=== PATIENT | male | born 1950 | race Caucasian/White ===

== ENCOUNTER 2023-06-30 09:57 | Outpatient (OUT) | payer MEDICARE, SELFPAY ==
--- NOTE | 2023-06-30 14:45 | CA_ITS ---
Patient Name: CUATE GOLDMAN MR#: [id number] : 1950 Exam Date: 06/30/2023 Ordering Doctor: DR VIGNESH ZHOU M.D. ECHOCARDIOGRAM REPORT PROCEDURE: CA ECHO DOPPLER COMPLETE INDICATIONS: Dizziness, loop recorder, hypertension, CAD COMPARISON: None. DESCRIPTION: COMPLETE ECHOCARDIOGRAM Real-time transthoracic echocardiography with 2D, M-mode, spectral and color flow Doppler performed. QUALITY: Technical quality was good. 72 , 204#, BSA 2.15 m2 LEFT VENTRICLE: Normal chamber size. Proximal septal hypertrophy (sigmoid septum). LV EF: Global left ventricular systolic function is normal; visually estimated ejection fraction is 55 to 60%. No obvious wall motion abnormalities. DIASTOLIC: Normal diastolic function. ATRIAL SEPTUM: Visually appears intact. LEFT ATRIUM: Moderate dilatation. RIGHT ATRIUM: Mild dilatation. RIGHT VENTRICLE: Normal chamber size. Normal right ventricular systolic function. TRICUSPID VALVE: Normal mobility and thickness. Mild regurgitation. No evidence of pulmonary hypertension. RVSP 30 mmHg MITRAL VALVE: Mildly thickened with normal mobility. No evidence of mitral valve stenosis. Mild mitral annular calcification. Mild mitral regurgitation. AORTIC VALVE: Normal trileaflet appearance. Moderately calcified aortic valve. No evidence of aortic valve stenosis. No aortic regurgitation. AORTIC ROOT: Mildly dilated. Aortic arch not well visualized. PULMONIC VALVE: Normal thickness and mobility. No stenosis. Trivial regurgitation. PERICARDIUM: No evidence of pericardial effusion. IVC: Collapses with inspirations. IVS is dilated (2.2 cm) CONCLUSION: 1. Global left ventricular systolic function is normal; visually estimated ejection fraction is 55 to 60% 2. The right ventricle is normal in size and systolic function 3. Biatrial enlargement 4. Normal diastolic function 5. Mild tricuspid regurgitation 6. Mild mitral regurgitation 7. The aortic root is mildly dilated Adult Echocardiography Procedure Report Left Ventricle LVEDD (3.7 - 5.6 cm): 4.92 cm LVESD (2.2 - 4.0 cm): 3.18 cm LVIVS thickness (0.6 - 1.2 cm): 1.63 cm LVPW thickness (0.5 - 1.0 cm): 1.09 cm e': 0.10 m/s E - e': 6.52 LVOT Max Gradient: 3.15 mm[Hg] LVOT Area (cm2): 0.89 m/s Peak Velocity (LVOT): 0.89 m/s Mean Velocity (LVOT): 0.54 m/s LVOT Diameter 2.61 cm Left Atrium LA Volume Index (2D A2C): 45.03 ml/m2 Left Atrium Systolic Dimension: 4.96 cm Mitral Valve MV E to A Ratio: 0.87 Mitral Valve A-Wave Peak Velocity: 0.77 m/s Mitral Valve E-Wave Peak Velocity: 0.67 m/s Right Ventricle Aorta AO Root Diam: 4.23 cm Ascending Ao Diam: 3.89 cm Aortic Valve AoV Area (Peak Rogerio): 3.94 cm2, 3.25 cm2 AoV Area (VTI): 3.96 cm2, 3.41 cm2 Peak Velocity(Antegrade Flow): 1.46 m/s, 0.95 m/s Peak Gradient(Antegrade Flow): 8.58 mm[Hg], 3.63 mm[Hg] Mean Velocity(Antegrade Flow): 0.97 m/s, 0.67 m/s Mean Gradient(Antegrade Flow): 4.35 mm[Hg], 1.99 mm[Hg] Velocity Time Integral: 31.71 cm, 22.90 cm Tricuspid Valve Peak Velocity (Regurgitant Flow): 2.35 m/s Pulmonic Valve Peak Velocity: 0.96 m/s Peak Gradient: 3.75 mm[Hg], 3.60 mm[Hg] Right Atrium Right Atrium Systolic Pressure: 65.47 ml, 65.47 ml Dictated by: Jordi Christiansen M.D. on 06/30/2023 at 16:05 Approved by: Jordi Christiansen M.D. on 06/30/2023 at 16:12
== END 2023-06-30 09:58 | disposition home or self-care (01) ==
PROVIDERS: Visit Provider Internal Medicine Interventional Cardiology
DX: I48.0 Paroxysmal atrial fibrillation (principal); R42 Dizziness and giddiness
CPT/HCPCS: 93306

== ENCOUNTER 2024-05-16 09:36 | Outpatient (OUT) | payer MEDICARE, SELFPAY ==
--- OUTSIDE RECORDS SUMMARY | 2024-05-16 09:54 | XMS_ITS | CCD ---
Author Organization [facility] Care Team Providers Care Flotation Tender Name Role Phone PHYSICIAN, DEFAULT Unavailable Unavailable PHYSICIAN, DEFAULT Unavailable Unavailable LEON PATEL Unavailable Unavailable ANASTACIO, FRANCIS Admitting Unavailable ANASTACIO, FRANCIS Attending Unavailable MISC, DR JASSO Referring Unavailable ANASTACIO, FRANCIS Consulting Unavailable MOUKARBEL, DR MEDELLIN Admitting Unavailable MOUKARBEL, DR MEDELLIN Attending Unavailable MISC, DR JASSO Referring Unavailable MOUKARBEL, DR MEDELLIN Consulting Unavailable JACQUE, AUBREY Referring Unavailable JACQUE, AUBREY Referring Unavailable JACQUE, AUBREY Referring Unavailable JACQUE, AUBREY Referring Unavailable JACQUE, AUBREY Referring Unavailable ANASTACIO, FRANCIS Referring Unavailable ANASTACIO, FRANCIS Referring Unavailable JACQUE, AUBREY Referring Unavailable ANASTACIO, FRANCIS Referring Unavailable ANASTACIO, FRANCIS Attending Unavailable KRISH MARIE Attending Unavailable Allergies Allergy Classification Reported Allergen(s) Allergy Type Date of Onset Reaction(s) Facility (1 source) 69932,00; Translations: [96407,00] Propensity to adverse reactions (disorder) [address] [facility] Repository Problems Active Problems Problem Classification Problem Date Documented Da te Episodic/Chronic Cardiac dysrhythmias (6 sources) Paroxysmal atrial fibrillation; Translations: [PAROXYSMAL ATRIAL FIBRILLATION] Onset: 07-24-2021 Chronic Heart valve disorders (2 sources) Nonrheumatic mitral (valve) insufficiency; Translations: [Nonrheumatic mitral (valve) insufficiency] Onset: 05-09-2024 Chronic Heart valve disorders (2 sources) Cardiac murmur, unspecified; Translations: [Cardiac murmur, unspecified] Onset: 05-09-2024 Episodic Past or Other Problems Problem Classification Problem Date Documented Da te Episodic/Chronic Cardiac dysrhythmias (2 sources) Palpitations; Translations: [Palpitations] Onset: 01-16-2024 Episodic Conditions associated with dizziness or vertigo (2 sources) Dizziness and giddiness; Translations: [Dizziness and giddiness] Onset: 06-21-2023 Episodic Results Test Name Value Interpretation Reference Range Facil ity Office Visiton 06-21-2023 Follow-up visit [id number] Cuate Miguel Hemanth 1950 M Date Provider Department Center 06/21/2023 FR[place] [facility] Family History Problem Relation Age of Onset Coronary artery disease Other Family Status - Relation Status Age at Other Level of Service:25945 CA OFFICE/OUTPATIENT ESTABLISHED LOW MDM [address] [facility] LIPID PROFILEon 03-22-2022 CHOL-HDL RATIO NORM SEE BELOW Normal [facility] Comment on above: Result Comment: 3.3 - 4.4 LOW RISK 4.4 - 7.1 AVERAGE RISK 7.1 - 11.0 MODERATE RISK >11.0 HIGH RISK Performed By: #### L IPID #### [facility] [address] [address] [address] Evelio Kc Cholesterol [Mass/Vol] 129 mg/dL Normal <=200 [facility] Comment on above: Performed By: #### L IPID #### [facility] [address] [address] [address] Evelio Kc Cholesterol in HDL [Mass/Vol] 54 mg/dL Normal 40-60 [facility] Comment on above: Performed By: #### L IPID #### [facility] [address] [address] [address] Evelio Kc Cholesterol in LDL [Mass/Vol] 59.2 mg/dL Normal [facility] Comment on above: Performed By: #### L IPID #### [facility] [address] [address] [address] Evelio Kc Cholesterol.total/C holesterol in HDL [Mass ratio] 2.4 {ratio} Normal [facility] Comment on above: Performed By: #### L IPID #### [facility] [address] [address] [address] Evelio Kc HDL NORMAL > or = 60 mg/dl - LOW CARDIOVASCULAR RISK <40 mg/dl - HIGH CARDIOVASCULAR RISK Normal [facility] Comment on above: Performed By: #### L IPID #### [facility] [address] [address] [address] Evelio Kc LDL CALC NORMAL SEE BELOW Normal [facility] Comment on above: Result Comment: <100 mg/dl OPTIMAL 100 - 129 mg/dl NEAR OR ABOVE OPTIMAL 130 - 159 mg/dl BORDERLINE HIGH 160 - 189 mg/dl HIGH >190 mg/dl VERY HIGH Performed By: #### L IPID #### [facility] [address] [address] [address] Evelio Kc Triglyceride [Mass/Vol] 79 mg/dL Normal <=150 [facility] Comment on above: Performed By: #### L IPID #### [facility] [address] [address] [address] Evelio Kc VLDL CALC 15.8 mg/dL Normal [facility] Comment on above: Performed By: #### L IPID #### [facility] [address] [address] [address] Evelio Kc COVID-19 Antigenon 2 COVID-19 Antigen Healthcare Worker?: N Petty Reference Petty Reference Negative SARS-CoV+SARS-CoV-2 (COVID-19) Ag [Presence] in Respiratory specimen by Rapid immunoassay Negative for SARS Antigen by STANISLAV COVID19 Blank Space Petty Disclaimer Negative results, from patients with symptom Petty Disclaimer onset beyond five days, should be treated as Petty Disclaimer presumptive and confirmation with a molecular Petty Disclaimer assay, if necessary, for patient management, Petty Disclaimer may be performed. Negative results do not rule Petty Disclaimer out COVID-19 and should not be used as the sole Petty Disclaimer basis for treatment or patient management Petty Disclaimer decisions, including infection control decisions. Petty Disclaimer Negative results should be considered in the Petty Disclaimer context of a patient's recent exposures, history Petty Disclaimer and the presence of clinical signs and symptoms Petty Disclaimer consistent with COVID-19. COVID19 Blank Space Petty Disclaimer The Petty SARS Antigen STANISLAV does not differentiate Petty Disclaimer between SARS-CoV and SARS-CoV-2. COVID19 Blank Space Petty Disclaimer This test was developed and its performance Petty Disclaimer characteristic determined by [employer] and Petty Disclaimer validated at [facility]. This Petty Disclaimer test has not been FDA cleared or approved. This Petty Disclaimer test has been authorized by FDA under an Emergency Use Petty Disclaimer Authorization (EUA). This test has been validated Petty Disclaimer in accordance with the FDA's Guidance Document (Policy Petty Disclaimer for Diagnostics Testing in Laboratories Certified to Petty Disclaimer Perform High Complexity Testing under CLIA prior to Petty Disclaimer Emergency Use Authorization for Coronavirus Petty Disclaimer during the Public Health Emergency) Petty Disclaimer issued on September 13, 2019. This test is only authorized Petty Disclaimer for the duration of time the declaration that Petty Disclaimer circumstances exist justifying the authorization of Petty Disclaimer the emergency use of in vitro diagnostic tests for Petty Disclaimer detection of SARS-CoV-2 virus and/or diagnosis of Petty Disclaimer COVID-19 infection under section 564(b)(1) of the Petty Disclaimer Act, 21 U.S.C. 360bbb-3(b)(1), unless the Petty Disclaimer authorization is terminated or revoked sooner. PERFORMED BY: [facility] [address] PATHOLOGIST CORE OVEN TENDER MARSHA AKHTAR M.D. Normal [facility] Comment on above: Performed By: #### C OVID-19 PETTY, SOFIANEG #### [id number] [facility] Petty Ag Negativeon 07-09-19 22 Petty Ag Negative Negative Normal Negative [facility] Comment on above: Result Comment: This is a duplicate Petty SARS Antigen (STANISLAV) result to be used for statistical tracking purpose only. PERFORMED BY: [place] [address] PATHOLOGIST CORE OVEN TENDER MARSHA AKHTAR M.D. Performed By: #### C OVID-19 PETTY, SOFIANEG #### [address] COVID-19 Antigenon 2 COVID-19 Antigen Healthcare Worker?: N Petty Reference Petty Reference Negative SARS-CoV+SARS-CoV-2 (COVID-19) Ag [Presence] in Respiratory specimen by Rapid immunoassay Negative for SARS Antigen by STANISLAV COVID19 Blank Space Petty Disclaimer Negative results, from patients with symptom Petty Disclaimer onset beyond five days, should be treated as Petty Disclaimer presumptive and confirmation with a molecular Petty Disclaimer assay, if necessary, for patient management, Petty Disclaimer may be performed. Negative results do not rule Petty Disclaimer out COVID-19 and should not be used as the sole Petty Disclaimer basis for treatment or patient management Petty Disclaimer decisions, including infection control decisions. Petty Disclaimer Negative results should be considered in the Petty Disclaimer context of a patient's recent exposures, history Petty Disclaimer and the presence of clinical signs and symptoms Petty Disclaimer consistent with COVID-19. COVID19 Blank Space Petty Disclaimer The Petty SARS Antigen STANISLAV does not differentiate Petty Disclaimer between SARS-CoV and SARS-CoV-2. COVID19 Blank Space Petty Disclaimer This test was developed and its performance Petty Disclaimer characteristic determined by [employer] and Petty Disclaimer validated at [facility]. This Petty Disclaimer test has not been FDA cleared or approved. This Petty Disclaimer test has been authorized by FDA under an Emergency Use Petty Disclaimer Authorization (EUA). This test has been validated Petty Disclaimer in accordance with the FDA's Guidance Document (Policy Petty Disclaimer for Diagnostics Testing in Laboratories Certified to Petty Disclaimer Perform High Complexity Testing under CLIA prior to Petty Disclaimer Emergency Use Authorization for Coronavirus Petty Disclaimer iseas during the Public Health Emergency) Petty Disclaimer issued on September 13, 2019. This test is only authorized Petty Disclaimer for the duration of time the declaration that Petty Disclaimer circumstances exist justifying the authorization of Petty Disclaimer the emergency use of in vitro diagnostic tests for Petty Disclaimer detection of SARS-CoV-2 virus and/or diagnosis of Petty Disclaimer COVID-19 infection under section 564(b)(1) of the Petty Disclaimer Act, 21 U.S.C. 360bbb-3(b)(1), unless the Petty Disclaimer authorization is terminated or revoked sooner. PERFORMED BY: [facility] [place] [address] PATHOLOGIST CORE OVEN TENDER MARSHA AKHTAR M.D. [facility] Comment on above: Performed By: #### S OFIANEG, COVID-19 PETTY #### [facility] [address] [place] [address] [place] Petty Ag Negativeon 06-16-19 Petty Ag Negative Negative Normal Negative [facility] Comment on above: Result Comment: This is a duplicate Petty SARS Antigen (STANISALV) result to be used for statistical tracking purpose only. PERFORMED BY: [facility] [address] [facility] [place] [address] PATHOLOGIST CORE OVEN TENDER MARSHA AKHTAR M.D. Performed By: #### S OFLIZZY, COVID-19 PETTY #### [facility] [address] [id number] [facility] Encounters Encounter Date Encounter Type Care Provider Facility Start: 05-09-2024 End: 05-09-2024 ambulatory KRISH [facility] Start: 05-04-2024 ambulatory [facility] Start: 04-20-2024 ambulatory [facility] Start: 03-12-2024 ambulatory [facility] Start: 02-15-2024 ambulatory [facility] Start: 01-16-2024 ambulatory [facility] Start: 11-29-2023 [facility] Start: 06-21-2023 End: 06-21-2023 ambulatory [facility] Start: 03-22-2022 End: 03-23-[address] VIGNESH SPRING Facility:[facility] Start: 07-24-2021 End: 07-24-2021 ambulatory FRANCIS GALLEGOSCKO Facility:[facility] Start: 04-11-2017 End: 04-12-2017 Ambulatory DEFAULT PHYSICIAN Facility:[facility] Payers Date Payer Category Payer Medicare [id number] 1950 Unknown [id number] 1950 Unknown [id number] Unknown Progress note 11-27-2024 Note Date & Type Note Facility 05-09-2024 Note Patient here for 10 mo follow up PAF, CAD, and hypertension. Had echo last Jun 2023 after last apt. Had routine labs at the [facility] a few weeks ago. Doing very well. Denies chest pain, SOB, palpitations, and lightheadedness/syncope. BP at home this morning was 122/62. He received a text message from [employer] stating his loop recorder isn't transmitting. Review of Systems HENT: Positive for hearing loss. All other systems reviewed and are negative. [facility] Progress note 06-21-2023 Note Date & Type Note Facility 06-21-2023 Note [facility] Reason for visit: 06/21/23 Loop check done on 06/21/2023 by me personally Did not reveal any episodes of A-fib. there was 1 episode of symptomatic lightheadedness reported on which correlated with sinus rhythm as well as PACs but no significant AV block or bradycardia was noted. 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 He is doing well with no other symptoms or issues. he states active. Patient here for 2 mo [address] up per Dr[address] Spring to discuss anticoagulation therapy. Echo has not been performed yet. He was also started on Zetia but says the [facility] never gave it to him. He states he feels good. Denies chest pain, SOB, palpitations, lightheadedness/syncope, and bleeding on Eliquis. Prior HPI: Cuate Miguel is a 73 y.o. year old with past medical history of CAD s/p RCA stent in 2011, hypertension, history of A-fib/A-flutter who was previously seen by me. he subsequently underwent a loop implant on 07/24/2021 to decide on further he would need long-term anticoagulation. Blood testing April 16, 2019 showed hemoglobin 12.9, platelets 140, potassium 4.3, BUN 15, creatinine 1.1, cholesterol 106, LDL 54, HDL 41, triglycerides 82. His liver enzymes were within normal limits Echocardiogram on 10/15/2020 shows EF of 65% with a mildly dilated left atrium and a mildly dilated right atrium with trace MR. The RV is mildly dilated with normal function and the ascending aorta is also mildly enlarged with aortic sinus also mildly enlarged Stress test that was done on 04/11/2017 showed no evidence of ischemia with normal EF 10/10/2011 CVL report FINAL IMPRESSION: 1. Severe single vessel coronary artery disease. 2. Successful angioplasty and stent placement in the right coronaryartery. 3. Mildly elevated left ventricular end diastolic pressure. Left main coronary artery: There is a 30% distal stenosis. Left anterior descending coronary artery: There is a 40% stenosis at thebifurcation with first diagonal branch. Diffuse luminal irregularities arseen through the remainder of the vessel. Median ramus: This is a small to moderate size vessel with diffuseirregularities. Left circumflex coronary artery: This is a moderate size vessel withdiffuse luminal irregularities. Right coronary: Baseline angiography using 95% mid vessel stenosis associated with MELANIE 2 distal flow. Following angioplasty and stent placement, the stenosis was reduced to 0%. The final angiogram revealed MELANIE 3 flow with no evidence of dissection or thrombus. PMH: No past medical history on file. PSH: Past Surgical History: Procedure Laterality Date CARDIAC CATHETERIZATION 10/10/2011 C, ANGIOPLASTY AND STEN PLACEMENT IN RCA CARDIAC SURGERY 07/19/2011 EP STUDY AND ABLATION CATARACT EXTRACTION JOINT REPLACEMENT 11/11/2005 KNEE SURGERY KNEE SURGERY 10/12/1983 SHOULDER SURGERY SH: Social Determinants of Health Tobacco Use: Medium Risk (04/27/2023) Patient History Smoking Tobacco Use: Former Smokeless Tobacco Use: Never Passive Exposure: Not on file Alcohol Use: Not on file Financial Resource Strain: Not on file Food Insecurity: Not on file Transportation Needs: Not on file Physical Activity: Not on file Stress: Not on file Social Connections: Not on file Intimate Partner Violence: Not on file Depression: Not on file Housing Stability: Not on file Utilities: Not on file Allergies: No Known Allergies Weight: 95.7kg Visit Vitals BP 145/78 (BP Location: Right arm, Patient Position: Sitting) Pulse 91 Ht 1.778 m (5' 10 ) Wt 95.7 kg (211 lb) SpO2 96% BMI 30.28 kg/m??? Smoking Status Former BSA 2.17 m??? Meds: Current Outpatient Medications on File Prior to Visit Medication Sig Dispense Refill amLODIPine (Norvasc) 2.5 mg tablet Take 2.5 mg by mouth in the morning. apixaban (Eliquis) 5 mg tablet Take 1 tablet twice a day by oral route. ascorbic acid (Vitamin C) 1,000 mg tablet Take 1,000 mg by mouth in the morning. aspirin 81 mg EC tablet Take 1 tablet every day by oral route. beta carotene (vitamin A) 10,000 unit capsule Take 10,000 Units by mouth in the morning. carvedilol (Coreg) 3.125 mg tablet Take 1 tablet twice a day by oral route for 90 days. cholecalciferol (Vitamin D-3) 25 MCG (1000 units) tablet 125 mcg. gabapentin (Neurontin) 300 mg capsule Take 1 capsule twice a day by oral route. lisinopril 20 mg tablet Take 20 mg by mouth once daily as directed. loratadine 10 mg tablet,chewable Take 1 tablet every day by oral route. omeprazole (PriLOSEC) [address] capsule Take 1 capsule every day by oral route. simvastatin (Zocor) 80 mg tablet Take 0.5 tablets every day by oral route. vitamin B complex tablet extended release Take by mouth. vitamin D3-folic acid 250 mcg (10,000 unit)-1 mg tablet Take by mouth. zinc gluconate 50 mg tablet Take by mouth. ezetimibe (Zetia) 10 mg tablet Take 1 (more content not included)... 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 Francis Kovacs INDICATIONS FOR PROCEDURE: 1. AF surveillance CONSENT: Patient LOCATION: EP Lab PROCEDURAL SEDATION: None FLUOROSCOPY TIME: 0min PREPARATION: Preoperative antibiotics was administered. PROCEDURES PERFORMED: 1. LOOP implant PROCEDURE NOTE: Mr. Miguel is a 71-year-old gentleman with a history of prior ablation, who is undergoing loop implant for AF surveillance. Please refer to my consult note for details of the discussion and of indications. Patient was brought to the lab in the post absorptive state. A procedural pause was performed verifying the patient, the procedure. Sterile prep and drape were performed over the left precordium and anesthesia with 1% lidocaine was followed by a small incision was made in the 3rd intercostal space near the sternum on the left using the [employer] tool. The loop recorder was then injected subcutaneously and noted to have good sensing parameters. Technical details of the device as noted below. The skin was then closed with 3-0 absorbable monofilament suture and glue applied to hold the edges together. Tegaderm was applied to cover the wound. The patient appeared to tolerate the procedure well and was returned to the room in stable condition. No complications were immediately observed. LOOP details: Device Model: M301 Lux-Dx Serial#: [id number] Sensing is 0.23mV. IMPRESSION: Successful placement of LOOP implant with excellent sensing parameters. RECOMMENDATIONS: 1. Occlusive dressing to be changed after 7 days. 2. Do not wet the incision. Francis Kovacs MD Cardiac Electrophysiology Electronically Authenticated and Edited by: Francis Kovacs MD on 12/01/2021 07:31 PM EDT IFC Signed and Approved by: FRANCIS KOVACS 12/01/2021 19:31:00 [facility] Summary Purpose Family History No Family History Records FoundNo Family History Records FoundNo Family History Records FoundNo Family History Records Found Advance Directives No Advanced Directives Records FoundNo Advanced Directives Records FoundNo Advanced Directives Records FoundNo Advanced Directives Records Found Additional Source Comments (unrecognized sect ion and content) No Status Records FoundNo Status Records FoundNo Status Records FoundNo Status Records Found INFORMATION SOURCE (unrecogn ized section and content) DATE CREATED AUTHOR 12/06/2017 [facility] DATE CREATED AUTHOR AUTHOR'S ORGANIZ ATION 08/31/2021 [facility] DATE CREATED AUTHOR AUTHOR'S ORGANIZ ATION 03/23/2022 [facility] DATE CREATED AUTHOR AUTHOR'S ORGANIZ ATION 05/12/2024 [facility] FOR RECORDS PERTAINING TO PATIENTS WHO ARE OR HAVE BEEN ENROLLED IN A CHEMICAL DEPENDENCY/SUBSTANCEABUSE PROGRAM, SOME INFORMATION MAY BE OMITTED. This clinical summary was aggregated from multiple sources. Caution should be exercised in using it in the provision of clinical care. This summary normalizes information from multiple sources, and as a consequence, information in this document may materially change the coding, format and clinical context of patient data. In addition, data may be omitted in some cases. CLINICAL DECISIONS SHOULD BE BASED ON THE PRIMARY CLINICAL RECORDS. [facility] [employer] [facility] provides no warranty or guarantee of the accuracy or completeness of information in this document.
--- NOTE | 2024-05-16 10:00 | CA_ITS ---
Patient Name: CUATE GOLDMAN MR#: [id number] : 1950 Exam Date: 05/16/2024 Ordering Doctor: KRISH MARIE CNP ECHOCARDIOGRAM REPORT PROCEDURE: CA ECHO DOPPLER COMPLETE INDICATIONS: Murmur, abnormal heart sounds, Mitral valve regurgitation COMPARISON: None. DESCRIPTION: COMPLETE ECHOCARDIOGRAM Real-time transthoracic echocardiography with 2D, M-mode, spectral and color flow Doppler performed. QUALITY: Technical quality was good. LEFT VENTRICLE: Normal chamber size. Proximal septal hypertrophy (sigmoid septum). Normal systolic function. LV EF: Normal left ventricular ejection fraction, (55%). DIASTOLIC: Diastolic function is indeterminate. ATRIAL SEPTUM: Visually appears intact. LEFT ATRIUM: Mild chamber dilatation. RIGHT ATRIUM: Normal chamber size. RIGHT VENTRICLE: Normal chamber size. Normal right ventricular systolic function. TRICUSPID VALVE: Normal mobility and thickness. No stenosis with mild regurgitation. Doppler studies reveal mildly (35-45) elevated right sided pressures. RVSP 45 mmHg MITRAL VALVE: Normal mobility and thickness. No evidence of mitral valve stenosis. Mitral annular calcification. Mild mitral regurgitation. AORTIC VALVE: Trileaflet appearance. Moderately thickened aortic valve. Mildly diminished mobility. No evidence of aortic valve stenosis. No aortic regurgitation. AORTIC ROOT: Normal diameter and appearance. Ascending aorta is normal. PULMONIC VALVE: Normal thickness and mobility. No stenosis. Trivial regurgitation. PERICARDIUM: No evidence of pericardial effusion. IVC: IVC is dilated (2.6 cm) with no collapse. PLEURA: CONCLUSION: 1. Normal left ventricular size and systolic function. Estimated LVEF is 55%. 2. Normal right ventricular size and systolic function. 3. Mild mitral and tricuspid regurgitation. 4. Thickened aortic valve leaflets without significant stenosis. 5. Moderately elevated right-sided pressures. RVSP is 45 mmHg. Adult Echocardiography Procedure Report Left Ventricle LVEDD (3.7 - 5.6 cm): 4.82 cm LVESD (2.2 - 4.0 cm): 2.75 cm LVIVS thickness (0.6 - 1.2 cm): 1.55 cm LVPW thickness (0.5 - 1.0 cm): 1.13 cm e': 0.09 m/s E - e': 8.09 LVOT Max Gradient: 3.84 mm[Hg] LVOT Area (cm2): 0.98 m/s Peak Velocity (LVOT): 0.98 m/s Mean Velocity (LVOT): 0.56 m/s LVOT Diameter 2.3 cm Left Atrium LA Volume Index (2D A2C): 34.49 ml/m2 Left Atrium Systolic Dimension: 4.82 cm Mitral Valve MV E to A Ratio: 0.83 Mitral Valve A-Wave Peak Velocity: 0.85 m/s Mitral Valve E-Wave Peak Velocity: 0.70 m/s Right Ventricle Aorta AO Root Diam: 3.77 cm Ascending Ao Diam: 3.53 cm Aortic Valve AoV Area (Peak Rogerio): 3.42 cm2, 3.42 cm2 AoV Area (VTI): 3.60 cm2, 3.60 cm2 Peak Velocity(Antegrade Flow): 1.61 m/s, 1.16 m/s, 1.42 m/s Peak Gradient(Antegrade Flow): 10.35 mm[Hg], 5.41 mm[Hg], 8.10 mm[Hg] Mean Velocity(Antegrade Flow): 1.03 m/s, 0.81 m/s, 0.84 m/s Mean Gradient(Antegrade Flow): 4.95 mm[Hg], 2.98 mm[Hg], 3.46 mm[Hg] Velocity Time Integral: 33.63 cm, 28.35 cm, 30.26 cm Tricuspid Valve Peak Velocity (Regurgitant Flow): 2.42 m/s, 2.75 m/s Pulmonic Valve Mean Gradient: 2.53 mm[Hg], 2.26 mm[Hg] Mean Velocity: 0.72 m/s, 0.68 m/s Peak Gradient: 4.61 mm[Hg], 4.24 mm[Hg] Right Atrium Right Atrium Systolic Pressure: 28.97 ml, 28.97 ml Dictated by: Rene Spring M.D. on 05/16/2024 at 14:29 Approved by: Rene Spring M.D. on 05/16/2024 at 14:33
== END 2024-05-16 09:37 | disposition home or self-care (01) ==
LOC: CARD 09:36
PROVIDERS: Visit Provider Nurse Practitioner Family
DX: I34.0 Nonrheumatic mitral (valve) insufficiency (principal); R01.1 Cardiac murmur, unspecified
CPT/HCPCS: 93306